=== PATIENT | female | born 1965 | race Two or more races ===

== ENCOUNTER 2023-11-25 15:18 | Outpatient (CLI) | payer OTHER | END 2023-11-25 15:20 | disposition home or self-care (01) | LOC: SONOGRAMA 15:18 | PROVIDERS: ATTEND Pathology Anatomic Pathology & Clinical Pathology | DX: C73 Malignant neoplasm of thyroid gland (principal); E04.2 Nontoxic multinodular goiter ==

== ENCOUNTER 2024-01-13 07:15 | Inpatient (IN) | payer OTHER ==
[~2024-01-13] VITALS: Ht 154.9 cm; Wt 64.9 kg
[2024-01-13] MEDS ORDERED: SYNTHROID50 MCG (08:36)
[2024-01-13] MEDS ORDERED: ENALAPRIL MALEAT5 MG (08:36)
[2024-01-13] MEDS ORDERED: AMOX-CLAV 875-1 EAC1 (08:36)
[2024-01-13 09:21] LABS: HEMATOCRIT 42.8 % (36.0-45.00); HEMOGLOBIN 14.1 g/dL (12.0-15.00); MEAN CELL VOLUME 93.6 fL (80.00-100.00); MEAN CORPUSCULAR HEMOGLOBIN 30.9 pg (27.00-32.0); PLATELET COUNT 246 K/uL (150-450); RED BLOOD COUNT 4.57 M/uL (4.00-6.00)
[2024-01-13 09:29] LABS: INR 0.97; PARTIAL THROMBOPLASTIN TIME 26.3 SECONDS (22.0-34.0); PROTHROMBIN TIME 10.6 SECONDS (9.0-11.5)
[2024-01-13 09:46] LABS: PH,URINE 5.5 (5.0-8.0); URINE APPEARANCE Clear; URINE BILIRRUBIN Negative (NEGATIVE); URINE BLOOD Negative; URINE COLOR Yellow; URINE GLUCOSE Negative (NEGATIVE); URINE KETONE Trace (NEGATIVE); URINE LEUKOCYTE Trace; URINE NITRATE Negative; URINE PROTEIN Negative (NEGATIVE); URINE UROBILINOGEN 0.2 E.U./dl
[2024-01-13 09:53] LABS: URINE BACTERIA 64.2 uL (0.0-1933); URINE EPITHELIAL CELLS 12.9 uL (0.0-38.8); URINE RBC 3.6 uL (0.0-20.8); URINE WBC 7.4 uL (0.0-23.2)
[2024-01-13 09:54] LABS: URINE CAST 0.15 uL (0.0-1.40)
[2024-01-13 10:19] LABS: ALBUMIN 3.9 gm/dL (3.4-5.0); BILIRUBIN TOTAL 1.08 mg/dL (0.3-1.2); CALCIUM 9.4 mg/dL (8.5-10.1); CREATININE SERUM 0.58 mg/dL (0.55-1.02); GFR 106.77; GLOBULINA 3.4 G/DL (2.4-3.5); POTASSIUM 4.34 mEq/L (3.5-5.1); TOTAL PROTEIN 7.3 gm/dL (6.4-8.2)
[2024-01-20] MEDS ORDERED: DEXAMETHASONE SODIUM PHOSPHATE 4 MG/ML VIAL IV ONE (10:30)
[2024-01-20] MEDS ORDERED: CEFAZOLIN SODIUM 1,000 MG VIAL IV ONE (10:30)
[2024-01-20] MEDS ORDERED: Calcium Carbonate 1 TAB TABLET PO SCH (12:11)
[2024-01-20] MEDS ORDERED: ONDANSETRON HCL 2 MG/ML VIAL IV PRN (12:15)
[2024-01-20] MEDS ORDERED: ENALAPRILAT DIHYDRATE 1.25 MG/ML VIAL IV PRN (12:15)
[2024-01-20] MEDS ORDERED: MORPHINE SULFATE 4 MG/ML VIAL IV ONE (12:30)
[2024-01-20] MEDS ORDERED: MORPHINE SULFATE 4 MG/ML VIAL IV SCH (13:00)
[2024-01-20] MEDS ORDERED: TRAMADOL HCL 50 MG TABLET PO SCH (17:00)
[2024-01-20] MEDS ORDERED: CYCLOBENZAPRINE HCL 5 MG TABLET PO SCH (17:00)
[2024-01-20] MEDS ORDERED: ACETAMINOPHEN 500 MG GEL..CAP PO SCH (17:00)
[2024-01-20 17:22] VITALS: BP 133/70; O2SAT 96
[2024-01-20] MEDS ORDERED: PANTOPRAZOLE SODIUM 40 MG/VIAL VIAL IV PUSH SCH (21:00)
[2024-01-21 00:15] VITALS: BP 137/74; O2SAT 98
[2024-01-21] MEDS ORDERED: LEVOTHYROXINE SODIUM 100 MCG TABLET PO SCH (06:00)
[2024-01-21 10:03] VITALS: BP 142/65; O2SAT 95
== END 2024-01-21 15:31 | disposition home or self-care (01) | DRG 627 ==
LOC: O/R 01-20 05:05 → SURG 01-20 07:15 → SURH 01-20 16:30
PROVIDERS: ADMIT Surgery; ATTEND Surgery
PROC: 0GTG0ZZ Resection of Left Thyroid Gland Lobe, Open Approach (ICD-10-PCS; principal; 2024-01-20 11:30)
DX: C73 Malignant neoplasm of thyroid gland (principal); Z20.822 Contact with and (suspected) exposure to COVID-19